=== PATIENT | male | born 1965 | race African-American/Black ===

== ENCOUNTER 2022-07-17 04:20 | Day surgery (SDC) | payer BC ==
[2022-07-15 15:40] VITALS: BMI 26.8
[2022-07-17 09:22] VITALS: RESP 18
[2022-07-17 09:24] VITALS: BP 128/82; PULSE 78; TEMP 98
== END 2022-07-17 09:28 | disposition home or self-care (01) ==
LOC: JASU-ENDO 04:20
PROVIDERS: ATTEND Internal Medicine Gastroenterology
PROC: 0DJD8ZZ Inspection of Lower Intestinal Tract, Via Natural or Artificial Opening Endoscopic (ICD-10-PCS; principal; 2022-07-17 08:30)
DX: Z12.11 Encounter for screening for malignant neoplasm of colon (principal)
CPT/HCPCS: 82962